=== PATIENT | female | born 1955 | race Asian ===

== ENCOUNTER 2020-03-22 05:41 | Day surgery (SDC) | payer MEDICARE, OTHER ==
[2020-03-19 11:49] LABS: CHLORIDE 111 mmol/L (98-107)
[2020-03-19 11:57] LABS: ALANINE AMINOTRANSFERASE 25 U/L (12-78); ALBUMIN 3.8 g/dL (3.4-5.0); ALKALINE PHOSPHATASE 100 U/L (45-117); ANION GAP 6 mmol/L (5-15); CALCIUM 8.7 mg/dL (8.5-10.1); CREATININE 0.76 mg/dL (0.55-1.02); TOTAL PROTEIN 7.7 g/dL (6.4-8.2)
[2020-03-19 14:29] LABS: BASOPHILS # (AUTO) 0.04 x10^3/uL (0-0.1); BASOPHILS % (AUTO) 1 % (0-1); EOSINOPHILS # (AUTO) 0.15 x10^3/uL (0-0.4); EOSINOPHILS % (AUTO) 2 % (1-7); LYMPHOCYTES # (AUTO) 1.89 x10^3/uL (1-3.4); LYMPHOCYTES % (AUTO) 29 % (22-44); MD NO; MEAN CORPUSCULAR HEMOGLOBIN 30.4 pg (27.0-34.8); MEAN CORPUSCULAR HGB CONC 33.5 g/dL (32.4-35.8); MEAN PLATELET VOLUME 8.5 fL (7.4-10.4); MONOCYTES # (AUTO) 0.28 x10^3/uL (0.2-0.8); MONOCYTES % (AUTO) 4 % (2-9); NEUTROPHILS # (AUTO) 4.06 x10^3/uL (1.8-6.8); NEUTROPHILS % (AUTO) 63 % (42-75); PLATELET COUNT 215 x10^3/uL (130-400); RED BLOOD COUNT 5.05 x10^6/uL (3.82-5.3); RED CELL DISTRIBUTION WIDTH 12.5 % (9.6-15.2)
[2020-03-19 14:36] LABS: INTERNATIONAL NORMALIZED RATIO 1.01 (0.93-1.1); PROTHROMBIN TIME 10.7 Seconds (9.6-11.5)
[~2020-03-22] VITALS: Ht 152.4 cm; Wt 71.6 kg
[~2020-03-22 05:41] MED LIST: ASPI-496 PO; ATOR40TA78 PO; METO25TA35 PO; OMEP40CA42 PO; RIVA20TA PO
[2020-03-22 06:43] VITALS: BP 147/98
[2020-03-22] MEDS ORDERED: LACTATED RINGERS 1,000 ML IV SCH (06:45)
[2020-03-22] MEDS ORDERED: CEFOTETAN PMX 2GM/50ML 50 ML IV ONE (06:45)
[2020-03-22] MEDS ORDERED: CHLORHEXIDINE 15 ML UDC MM ONE (07:00)
[2020-03-22] MEDS ORDERED: ACET650S21 PO (07:11)
[2020-03-22] MEDS ORDERED: MISOPROSTOL 200 MCG TABLET ONE (07:54)
[2020-03-22] MEDS ORDERED: SILVER NITRATE STICK TP ONE (07:54)
[2020-03-22] MEDS ORDERED: OXYTOCIN 10 UNITS/ML, 1ML ONE (07:54)
[2020-03-22] MEDS ORDERED: METHYLERGONOVINE 0.2 MG/ML IM ONE (07:55)
[2020-03-22] MEDS ORDERED: FENTANYL PF 250 MCG/5ML ONE (07:58)
[2020-03-22] MEDS ORDERED: MIDAZOLAM 1 MG/ML, 2ML ONE (07:58)
[2020-03-22] MEDS ORDERED: DEXAMETHASONE 4 MG/ML, 1ML ONE (08:16)
[2020-03-22] MEDS ORDERED: PROPOFOL 10 MG/ML, 20ML ONE (08:16)
[2020-03-22] MEDS ORDERED: ONDANSETRON 2MG/ML, 2ML ONE (08:16)
[2020-03-22] MEDS ORDERED: PHENYLEPHRINE 10 MG/ML ONE (08:16)
[2020-03-22] MEDS ORDERED: METOPROLOL 1 MG/ML, 5ML ONE (08:16)
[2020-03-22] MEDS ORDERED: OXYcodone 5 MG/5 ML ORAL.SOL UDC PO PRN (08:30)
[2020-03-22] MEDS ORDERED: LABETALOL 5MG/ML, 20ML IV PRN (08:30)
[2020-03-22] MEDS ORDERED: PROMETHAZINE 25 MG/ML, 1ML IVPush PRN (08:30)
[2020-03-22] MEDS ORDERED: MEPERIDINE/PF 25MG/0.5ML IVPush PRN (08:30)
[2020-03-22] MEDS ORDERED: HALOPERIDOL 5 MG/ML IV PRN (08:30)
[2020-03-22] MEDS ORDERED: hydrALAzine 20 MG/ML, 1ML IV PRN (08:30)
[2020-03-22] MEDS ORDERED: FENTANYL PF 100 MCG/2ML IV PRN (08:30)
[2020-03-22] MEDS ORDERED: HYDROmorphone 1 MG/ML, 1ML INJ IVPush PRN (08:30)
[2020-03-22] MEDS ORDERED: BUPIVACAINE/PF-EPI 0.25% 1:200K ONE (08:35)
== END 2020-03-22 12:20 | disposition home or self-care (01) ==
LOC: OUT 05:41
PROVIDERS: ATTEND Obstetrics & Gynecology
DX: N95.0 Postmenopausal bleeding (principal); N90.89 Other specified noninflammatory disorders of vulva and perineum; D28.0 Benign neoplasm of vulva; N72 Inflammatory disease of cervix uteri; I48.91 Unspecified atrial fibrillation; I10 Essential (primary) hypertension; K21.9 Gastro-esophageal reflux disease without esophagitis; Z79.01 Long term (current) use of anticoagulants; Z79.899 Other long term (current) drug therapy; Z86.73 Personal history of transient ischemic attack (TIA), and cerebral infarction without residual deficits
CPT/HCPCS: 36415; 56605; 58120; 71046; 80053; 85025; 85610; 85730; 86850; 86900; 88305; 88341; 88342; 88360; 93005; J1100; J2250; J2370; J2405; J2704; J3010; J3490; J7120; U0001; J2210; J2590